=== PATIENT | female | born 1945 | race Caucasian/White ===

== ENCOUNTER 2021-02-15 10:31 | Inpatient (IN) ==
[2021-02-15] MEDS ORDERED: Metoprolol 100 MG TABLET PO STA (10:52)
[2021-02-15] MEDS ORDERED: Ondansetron 4 MG/2 ML VIAL IVP ONE (10:52)
[2021-02-15] MEDS ORDERED: DilTIAZem CD (24hr) 120 MG CAP.ER.24H PO STA (10:53)
[2021-02-15] MEDS ORDERED: Ipratropium/Albuterol Neb 3 ML IH ONE (10:57)
[2021-02-15 12:09] LABS: Basophils % 0.1 %; Hematocrit 39.4 % (35.3-44.9); Hemoglobin 12.7 g/dL (11.5-15.4); Immature Granulocytes % 1.2 % (0-4); Lymphocytes # 0.6 K/mcL (0.6-4.6); Lymphocytes % 4.4 %; Mean Corpuscular HGB Conc 32.2 g/dL (31.6-35.5); Mean Corpuscular Hemoglobin 30.2 pg (28.0-33.3); Mean Corpuscular Volume 93.6 fL (83.0-100.0); Mean Platelet Volume 9.2 fL (9.4-12.4); Monocytes # 0.7 K/mcL (0.0-1.3); Monocytes % 4.8 %; Neutrophils # 13.1 K/mcL (1.6-8.9); Platelet Count 254 K/mcL (140-400); Red Blood Count 4.21 M/mcL (3.82-4.97); Red Cell Distribution Width 14.4 % (11.5-14.5); Segmented Neutrophils % 89.5 %; White Blood Count 14.7 K/mcL (4.3-11.1)
[2021-02-15 12:15] LABS: INR 2.7; Prothrombin Time 29.9 Seconds (9.4-12.1)
[2021-02-15 12:18] LABS: Activated Partial Thrombo Time 39.2 Seconds (26.0-36.0)
[2021-02-15] MEDS ORDERED: cefTRIAXone 1,000 MG in Water for inj. (sterile) 10 ML IVP ONE (12:30)
[2021-02-15] MEDS ORDERED: Azithromycin 250 MG TABLET PO ONE (12:30)
[2021-02-15 12:40] LABS: Influenza A PCR Negative (Negative); Influenza B PCR Negative (Negative); Resp. Syncytial Virus PCR Negative (Negative)
[2021-02-15 12:41] LABS: SARS-CoV-2 by PCR (In House) Negative (Negative)
[2021-02-15 12:46] LABS: Alanine Aminotransferase 30 Units/L (7-52); Albumin 4.1 g/dL (3.5-5.7); Albumin/Globulin Ratio 1.4 (1.1-2.2); Alkaline Phosphatase 120 Units/L (34-104); Aspartate Amino Transferase 30 Units/L (13-39); BUN/Creatinine Ratio 14 (6-26); Bilirubin,Direct 0.3 mg/dL (0.0-0.2); Bilirubin,Indirect 0.6 mg/dL (0.0-1.0); Bilirubin,Total 0.9 mg/dL (0.3-1.0); Blood Urea Nitrogen 10 mg/dL (8-23); Calcium 8.7 mg/dL (8.6-10.3); Carbon Dioxide 26 mEq/L (23-29); Chloride 96 mEq/L (98-107); Glucose 112 mg/dL (70-105); Osmolality,Calculated 272 (280-300); Potassium 3.9 mEq/L (3.5-5.1); Sodium 131 mEq/L (136-145); Total Protein 7.1 g/dL (6.4-8.9); Troponin I 0.04 ng/mL (< 0.04); eGFR For African Americans > 60 (> 60); eGFR For Non-African Americans > 60 (> 60)
[2021-02-15] MEDS ORDERED: methylPREDNISolone 125 MG/2 ML VIAL IVP ONE (12:55)
[2021-02-15] MEDS ORDERED: Naloxone 0.4 MG/ML INJ IVP PRN (13:38)
[2021-02-15] MEDS ORDERED: Ondansetron 4 MG/2 ML VIAL IVP PRN (13:38)
[2021-02-15] MEDS ORDERED: 0.9 % Sodium Chloride 1,000 ML IVC ONE (14:13)
[2021-02-15] MEDS: Ipratropium/Albuterol Neb 3 ML IH SCH ×2 (17:01→21:40)
[2021-02-15] MEDS ORDERED: Warfarin 0.5 MG, Warfarin 3 MG PO ONE (18:00)
[2021-02-15] MEDS ORDERED: Warfarin perPT PO PRN (18:00)
[2021-02-15] MEDS ORDERED: *HR* HYDROcodone/Acet 5/325 mg TABLET PO PRN (18:50)
[2021-02-15] MEDS: Metoprolol 100 MG TABLET PO SCH (19:58)
[2021-02-16] MEDS: Ipratropium/Albuterol Neb 3 ML IH SCH ×4 (04:08→21:15)
[2021-02-16] MEDS ORDERED: MethylPREDNISolone 40 MG/ML VIAL IVP SCH (06:00)
[2021-02-16 07:17] LABS: Basophils % 0.1 %; Hematocrit 36.6 % (35.3-44.9); Hemoglobin 11.8 g/dL (11.5-15.4); Immature Granulocytes % 2.3 % (0-4); Lymphocytes % 5.2 %; Mean Corpuscular HGB Conc 32.2 g/dL (31.6-35.5); Mean Corpuscular Hemoglobin 30.6 pg (28.0-33.3); Mean Corpuscular Volume 94.8 fL (83.0-100.0); Mean Platelet Volume 9.6 fL (9.4-12.4); Monocytes # 0.5 K/mcL (0.0-1.3); Monocytes % 2.9 %; Neutrophils # 16.8 K/mcL (1.6-8.9); Platelet Count 228 K/mcL (140-400); Red Blood Count 3.86 M/mcL (3.82-4.97); Red Cell Distribution Width 14.4 % (11.5-14.5); Segmented Neutrophils % 89.5 %; White Blood Count 18.8 K/mcL (4.3-11.1)
[2021-02-16 07:23] LABS: INR 2.4; Prothrombin Time 26.5 Seconds (9.4-12.1)
[2021-02-16 07:34] LABS: BUN/Creatinine Ratio 20 (6-26); Blood Urea Nitrogen 13 mg/dL (8-23); Calcium 7.9 mg/dL (8.6-10.3); Carbon Dioxide 22 mEq/L (23-29); Chloride 96 mEq/L (98-107); Glucose 155 mg/dL (70-105); Magnesium 1.5 mg/dL (1.6-2.6); Osmolality,Calculated 269 (280-300); Potassium 3.7 mEq/L (3.5-5.1); Sodium 128 mEq/L (136-145); eGFR For African Americans > 60 (> 60); eGFR For Non-African Americans > 60 (> 60)
[2021-02-16] MEDS ORDERED: Azithromycin 500 MG in 0.9 % Sodium Chloride 250 ML IVPB SCH (09:00)
[2021-02-16] MEDS: FLUoxetine 20 MG CAPSULE PO SCH (09:10)
[2021-02-16] MEDS: DilTIAZem CD (24hr) 240 MG CAP.ER.24H PO SCH (09:10)
[2021-02-16] MEDS: Metoprolol 100 MG TABLET PO SCH ×2 (09:11→20:01)
[2021-02-16] MEDS: cefTRIAXone 1,000 MG in Water for inj. (sterile) 10 ML IVP SCH (09:11)
[2021-02-16] MEDS: Aspirin Enteric Coated 81 MG Tablet PO SCH (09:11)
[2021-02-16] MEDS: Cholecalciferol (D-3) 1,000 UNIT (25MCG) TABLET PO SCH (09:11)
[2021-02-16] MEDS ORDERED: *HR* Warfarin 2.5 MG TABLET PO ONE ×2 (18:00→20:00)
[2021-02-17 02:04] LABS: Basophils % 0.1 %; Hemoglobin 11.5 g/dL (11.5-15.4); Lymphocytes # 0.9 K/mcL (0.6-4.6); Mean Corpuscular HGB Conc 31.9 g/dL (31.6-35.5); Mean Platelet Volume 9.7 fL (9.4-12.4); Monocytes % 4.3 %; Neutrophils # 21.1 K/mcL (1.6-8.9); Platelet Count 260 K/mcL (140-400); Red Blood Count 3.83 M/mcL (3.82-4.97); Red Cell Distribution Width 14.1 % (11.5-14.5); Segmented Neutrophils % 89.6 %; White Blood Count 23.5 K/mcL (4.3-11.1)
[2021-02-17 02:23] LABS: BUN/Creatinine Ratio 26 (6-26); Blood Urea Nitrogen 24 mg/dL (8-23); Calcium 8.4 mg/dL (8.6-10.3); Carbon Dioxide 24 mEq/L (23-29); Chloride 92 mEq/L (98-107); Glucose 138 mg/dL (70-105); Osmolality,Calculated 268 (280-300); Potassium 4.1 mEq/L (3.5-5.1); Sodium 126 mEq/L (136-145); eGFR For African Americans > 60 (> 60); eGFR For Non-African Americans > 60 (> 60)
[2021-02-17] MEDS: Ipratropium/Albuterol Neb 3 ML IH SCH ×4 (04:27→19:56)
[2021-02-17] MEDS ORDERED: 0.9 % Sodium Chloride 1,000 ML IVC SCH (07:45)
[2021-02-17] MEDS: Doxycycline 100 MG CAPSULE PO SCH ×2 (09:18→20:13)
[2021-02-17] MEDS: Aspirin Enteric Coated 81 MG Tablet PO SCH (09:19)
[2021-02-17] MEDS: Metoprolol 100 MG TABLET PO SCH ×2 (09:19→20:13)
[2021-02-17] MEDS: FLUoxetine 20 MG CAPSULE PO SCH (09:19)
[2021-02-17] MEDS: DilTIAZem CD (24hr) 240 MG CAP.ER.24H PO SCH (09:19)
[2021-02-17] MEDS: Cholecalciferol (D-3) 1,000 UNIT (25MCG) TABLET PO SCH (09:19)
[2021-02-17] MEDS: cefTRIAXone 1,000 MG in Water for inj. (sterile) 10 ML IVP SCH (09:19)
[2021-02-17] MEDS: MethylPREDNISolone 40 MG/ML VIAL IVP SCH (09:20)
[2021-02-17 11:16] LABS: INR 2.8; Prothrombin Time 31.2 Seconds (9.4-12.1)
[2021-02-17] MEDS ORDERED: *HR* Warfarin 2 MG TABLET PO ONE (18:00)
[2021-02-18] MEDS: Ipratropium/Albuterol Neb 3 ML IH SCH ×3 (03:50→15:38)
[2021-02-18 05:51] LABS: Hematocrit 38.1 % (35.3-44.9); Hemoglobin 12.2 g/dL (11.5-15.4); Mean Corpuscular Hemoglobin 30.5 pg (28.0-33.3); Mean Corpuscular Volume 95.3 fL (83.0-100.0); Mean Platelet Volume 9.4 fL (9.4-12.4); Platelet Count 301 K/mcL (140-400); White Blood Count 18.8 K/mcL (4.3-11.1)
[2021-02-18 06:06] LABS: BUN/Creatinine Ratio 25 (6-26); Blood Urea Nitrogen 18 mg/dL (8-23); Calcium 8.8 mg/dL (8.6-10.3); Carbon Dioxide 26 mEq/L (23-29); Chloride 96 mEq/L (98-107); Glucose 116 mg/dL (70-105); Osmolality,Calculated 275 (280-300); Potassium 4.6 mEq/L (3.5-5.1); Sodium 131 mEq/L (136-145); eGFR For African Americans > 60 (> 60); eGFR For Non-African Americans > 60 (> 60)
[2021-02-18 06:07] LABS: INR 2.8; Prothrombin Time 31.5 Seconds (9.4-12.1)
[2021-02-18 06:56] VITALS: TEMP 98
[2021-02-18] MEDS: FLUoxetine 20 MG CAPSULE PO SCH (08:21)
[2021-02-18] MEDS: cefTRIAXone 1,000 MG in Water for inj. (sterile) 10 ML IVP SCH (08:22)
[2021-02-18] MEDS: Cholecalciferol (D-3) 1,000 UNIT (25MCG) TABLET PO SCH (08:22)
[2021-02-18] MEDS: Doxycycline 100 MG CAPSULE PO SCH (08:22)
[2021-02-18] MEDS: Aspirin Enteric Coated 81 MG Tablet PO SCH (08:22)
[2021-02-18] MEDS: Metoprolol 100 MG TABLET PO SCH (08:22)
[2021-02-18] MEDS: DilTIAZem CD (24hr) 240 MG CAP.ER.24H PO SCH (08:22)
[2021-02-18] MEDS: MethylPREDNISolone 40 MG/ML VIAL IVP SCH (08:23)
[2021-02-18 14:44] VITALS: BP 130/85; PULSE 99
[2021-02-18 15:41] VITALS: O2SAT 95
[2021-02-18] MEDS ORDERED: *HR* Warfarin 2 MG TABLET PO ONE (18:00)
== END 2021-02-18 17:31 | disposition home or self-care (01) | DRG 871 ==
LOC: EMEROOARM 10:31 → 3ANU 10:31 → SUATTDRO 02-16 15:19
PROVIDERS: ADMIT Internal Medicine; ATTEND Internal Medicine

== ENCOUNTER 2021-04-05 13:18 | Inpatient (IN) ==
[2021-04-05 14:27] LABS: Basophils % 0.1 %; Hematocrit 33.2 % (35.3-44.9); Hemoglobin 11.2 g/dL (11.5-15.4); Immature Granulocytes % 0.9 % (0-4); Lymphocytes # 0.7 K/mcL (0.6-4.6); Lymphocytes % 4.6 %; Mean Corpuscular HGB Conc 33.7 g/dL (31.6-35.5); Mean Corpuscular Hemoglobin 30.6 pg (28.0-33.3); Mean Corpuscular Volume 90.7 fL (83.0-100.0); Mean Platelet Volume 9.3 fL (9.4-12.4); Monocytes # 1.1 K/mcL (0.0-1.3); Monocytes % 6.9 %; Platelet Count 325 K/mcL (140-400); Red Blood Count 3.66 M/mcL (3.82-4.97); Segmented Neutrophils % 87.5 %
[2021-04-05 14:53] LABS: BUN/Creatinine Ratio 14 (6-26); Blood Urea Nitrogen 8 mg/dL (8-23); Calcium 9.2 mg/dL (8.6-10.3); Carbon Dioxide 26 mEq/L (23-29); Chloride 79 mEq/L (98-107); Glucose 150 mg/dL (70-105); Osmolality,Calculated 241 (280-300); Potassium 3.5 mEq/L (3.5-5.1); Sodium 115 mEq/L (136-145); Troponin I < 0.03 ng/mL (< 0.04); eGFR For African Americans > 60 (> 60); eGFR For Non-African Americans > 60 (> 60)
[2021-04-05 15:46] LABS: Alanine Aminotransferase 24 Units/L (7-52); Albumin 4.3 g/dL (3.5-5.7); Albumin/Globulin Ratio 1.4 (1.1-2.2); Alkaline Phosphatase 119 Units/L (34-104); Aspartate Amino Transferase 27 Units/L (13-39); BUN/Creatinine Ratio 15 (6-26); Bilirubin,Direct 0.4 mg/dL (0.0-0.2); Bilirubin,Indirect 0.8 mg/dL (0.0-1.0); Bilirubin,Total 1.2 mg/dL (0.3-1.0); Blood Urea Nitrogen 8 mg/dL (8-23); Calcium 9.3 mg/dL (8.6-10.3); Carbon Dioxide 25 mEq/L (23-29); Chloride 79 mEq/L (98-107); Glucose 157 mg/dL (70-105); Osmolality,Calculated 242 (280-300); Potassium 3.3 mEq/L (3.5-5.1); Sodium 115 mEq/L (136-145); Total Protein 7.3 g/dL (6.4-8.9); eGFR For African Americans > 60 (> 60); eGFR For Non-African Americans > 60 (> 60)
[2021-04-05] MEDS ORDERED: DilTIAZem 50 MG/50 ML IV.SOLN IVC SCH (18:00)
[2021-04-05] MEDS: DilTIAZem 50 MG/50 ML IV.SOLN IVC SCH ×2 (18:37→22:30)
[2021-04-05 19:27] LABS: Influenza A PCR Negative (Negative); Influenza B PCR Negative (Negative); Resp. Syncytial Virus PCR Negative (Negative); SARS-CoV-2 by PCR (In House) Negative (Negative)
[2021-04-05] MEDS ORDERED: Isovue-370 500 ML BOTTLE IVP ONE (19:32)
[2021-04-05 20:10] LABS: Bilirubin,Urine Negative (Negative); Blood,Urine Negative (Negative); Clarity,Urine Clear (Clear); Color,Urine Light-Yellow (Yellow); Glucose,Urine (UA) Normal (Normal); Ketones,Urine 20 mg/dL (Negative); Leukocyte Esterase,Urine Negative (Negative); Nitrite,Urine Negative (Negative); PH,Urine 6.5 pH Units (5.0-8.0); Protein,Urine 70 mg/dL (Neg-Trace); RBC,Urine 0-3 per hpf (0-3); Specific Gravity,Urine 1.014 (1.010-1.025); Squamous Epithelial Cell,Urine Few per hpf (None-Few); Urobilinogen,Urine Normal (Normal); WBC,Urine 0-3 per hpf (0-3)
[2021-04-05] MEDS ORDERED: Acetaminophen 325 MG TABLET PO PRN (20:15)
[2021-04-05] MEDS ORDERED: Melatonin 3 MG TABLET PO PRN (20:15)
[2021-04-05] MEDS ORDERED: Naloxone 0.4 MG/ML INJ IVP PRN (20:15)
[2021-04-05] MEDS ORDERED: *HR* OxyCODONE Immed Rel 5 MG TABLET PO PRN (20:15)
[2021-04-05] MEDS ORDERED: Ondansetron 4 MG/2 ML VIAL IVP PRN (20:15)
[2021-04-05] MEDS ORDERED: *HR* HYDROcodone/Acet 5/325 mg TABLET PO PRN (20:15)
[2021-04-05] MEDS ORDERED: *HR* Promethazine 25 MG/ML VIAL IM PRN (20:15)
[2021-04-05 20:27] LABS: BUN/Creatinine Ratio 13 (6-26); Blood Urea Nitrogen 6 mg/dL (8-23); Calcium 8.7 mg/dL (8.6-10.3); Carbon Dioxide 24 mEq/L (23-29); Chloride 81 mEq/L (98-107); Glucose 135 mg/dL (70-105); Osmolality,Calculated 240 (280-300); Potassium 3.3 mEq/L (3.5-5.1); Sodium 115 mEq/L (136-145); eGFR For African Americans > 60 (> 60); eGFR For Non-African Americans > 60 (> 60)
[2021-04-05] MEDS ORDERED: Ipratropium/Albuterol Neb 3 ML IH PRN (21:11)
[2021-04-05 21:54] LABS: ABG Base Excess 2 mEq/L (-2 to 3); ABG HCO3 26 mEq/L (21-27); ABG Oxygen Saturation 96 % (95-98); ABG PCO2 40 mmHg (35-45); ABG PH 7.42 pH Units (7.32-7.45); ABG PO2 77 mmHg (85-104); ABG TCO2 28 mEq/L (20-26)
[2021-04-05] MEDS: Azithromycin 500 MG in 0.9 % Sodium Chloride 250 ML IVPB SCH (22:31)
[2021-04-05] MEDS: Cefepime HCl 2,000 MG in 0.9 % Sodium Chloride Mini Bag 100 ML IVPB SCH (22:49)
[2021-04-05] MEDS: 0.9 % Sodium Chloride 1,000 ML IVC SCH (23:28)
[2021-04-05] MEDS: MethylPREDNISolone 40 MG/ML VIAL IVP SCH (23:28)
[2021-04-06] MEDS ORDERED: *HR* LORazepam 2 MG/ML VIAL IVP PRN ×3 (00:22)
[2021-04-06 01:17] LABS: Prothrombin Time 22.3 Seconds (9.4-12.1)
[2021-04-06] MEDS ORDERED: *HR* Metoprolol 5 MG/5 ML VIAL IVP ONE (05:04)
[2021-04-06] MEDS: Cefepime HCl 2,000 MG in 0.9 % Sodium Chloride Mini Bag 100 ML IVPB SCH ×3 (05:24→21:56)
[2021-04-06 05:31] LABS: Basophils % 0.1 %; Hematocrit 30.6 % (35.3-44.9); Hemoglobin 10.5 g/dL (11.5-15.4); Immature Granulocytes % 0.8 % (0-4); Lymphocytes # 0.8 K/mcL (0.6-4.6); Lymphocytes % 4.6 %; Mean Corpuscular HGB Conc 34.3 g/dL (31.6-35.5); Mean Corpuscular Hemoglobin 31.3 pg (28.0-33.3); Mean Corpuscular Volume 91.1 fL (83.0-100.0); Mean Platelet Volume 9.2 fL (9.4-12.4); Monocytes # 0.6 K/mcL (0.0-1.3); Monocytes % 3.4 %; Neutrophils # 15.8 K/mcL (1.6-8.9); Platelet Count 274 K/mcL (140-400); Red Blood Count 3.36 M/mcL (3.82-4.97); Segmented Neutrophils % 91.1 %; White Blood Count 17.3 K/mcL (4.3-11.1)
[2021-04-06 05:38] LABS: INR 1.9; Prothrombin Time 21.4 Seconds (9.4-12.1)
[2021-04-06 05:55] LABS: Magnesium 1.7 mg/dL (1.6-2.6)
[2021-04-06] MEDS: 0.9 % Sodium Chloride 1,000 ML IVC SCH ×2 (07:53→21:44)
[2021-04-06] MEDS: MethylPREDNISolone 40 MG/ML VIAL IVP SCH ×2 (07:56→15:43)
[2021-04-06] MEDS: Folic Acid 1 MG in 0.9 % Sodium Chloride 50 ML IVPB SCH (11:54)
[2021-04-06 12:31] LABS: Albumin 3.6 g/dL (3.5-5.7); BUN/Creatinine Ratio 16 (6-26); Blood Urea Nitrogen 8 mg/dL (8-23); Calcium 8.6 mg/dL (8.6-10.3); Carbon Dioxide 25 mEq/L (23-29); Chloride 85 mEq/L (98-107); Glucose 130 mg/dL (70-105); Magnesium 1.8 mg/dL (1.6-2.6); Osmolality,Calculated 252 (280-300); Phosphorous 3.2 mg/dL (2.7-4.5); Potassium 3.6 mEq/L (3.5-5.1); Sodium 121 mEq/L (136-145); eGFR For African Americans > 60 (> 60); eGFR For Non-African Americans > 60 (> 60)
[2021-04-06] MEDS: Thiamine (B-1) 200 MG in 0.9 % Sodium Chloride 50 ML IVPB SCH (15:42)
[2021-04-06] MEDS ORDERED: Warfarin perPT PO PRN (18:00)
[2021-04-06] MEDS ORDERED: *HR* Warfarin 5 MG TABLET PO ONE (18:00)
[2021-04-06] MEDS: Azithromycin 500 MG in 0.9 % Sodium Chloride 250 ML IVPB SCH (22:02)
[2021-04-07] MEDS: MethylPREDNISolone 40 MG/ML VIAL IVP SCH ×3 (00:36→16:44)
[2021-04-07 01:42] LABS: INR 2.1; Prothrombin Time 23.7 Seconds (9.4-12.1)
[2021-04-07] MEDS: Cefepime HCl 2,000 MG in 0.9 % Sodium Chloride Mini Bag 100 ML IVPB SCH ×3 (06:20→21:32)
[2021-04-07] MEDS: Thiamine (B-1) 200 MG in 0.9 % Sodium Chloride 50 ML IVPB SCH (07:39)
[2021-04-07] MEDS: Folic Acid 1 MG in 0.9 % Sodium Chloride 50 ML IVPB SCH (07:39)
[2021-04-07] MEDS: 0.9 % Sodium Chloride 1,000 ML IVC SCH ×2 (07:39→18:33)
[2021-04-07] MEDS: Aspirin Enteric Coated 81 MG Tablet PO SCH (14:11)
[2021-04-07] MEDS: DilTIAZem CD (24hr) 240 MG CAP.ER.24H PO SCH (15:00)
[2021-04-07] MEDS: Metoprolol 100 MG TABLET PO SCH ×2 (15:00→21:33)
[2021-04-07] MEDS ORDERED: *HR* Warfarin 3 MG TABLET PO ONE (18:00)
[2021-04-07] MEDS: Azithromycin 500 MG in 0.9 % Sodium Chloride 250 ML IVPB SCH (21:32)
[2021-04-08] MEDS: MethylPREDNISolone 40 MG/ML VIAL IVP SCH ×3 (01:20→16:40)
[2021-04-08 02:51] LABS: Basophils % 0.1 %; Hemoglobin 10.2 g/dL (11.5-15.4); Lymphocytes # 0.6 K/mcL (0.6-4.6); Lymphocytes % 4.5 %; Mean Corpuscular HGB Conc 32.9 g/dL (31.6-35.5); Mean Corpuscular Hemoglobin 30.3 pg (28.0-33.3); Monocytes # 0.4 K/mcL (0.0-1.3); Monocytes % 2.9 %; Neutrophils # 13.1 K/mcL (1.6-8.9); Platelet Count 300 K/mcL (140-400); Red Blood Count 3.37 M/mcL (3.82-4.97); Red Cell Distribution Width 17.2 % (11.5-14.5); Segmented Neutrophils % 91.5 %; White Blood Count 14.3 K/mcL (4.3-11.1)
[2021-04-08] MEDS: 0.9 % Sodium Chloride 1,000 ML IVC SCH (02:53)
[2021-04-08 03:08] LABS: BUN/Creatinine Ratio 26 (6-26); Blood Urea Nitrogen 16 mg/dL (8-23); Calcium 8.3 mg/dL (8.6-10.3); Carbon Dioxide 22 mEq/L (23-29); Chloride 96 mEq/L (98-107); Glucose 142 mg/dL (70-105); Osmolality,Calculated 264 (280-300); Potassium 4.1 mEq/L (3.5-5.1); Sodium 125 mEq/L (136-145); eGFR For African Americans > 60 (> 60); eGFR For Non-African Americans > 60 (> 60)
[2021-04-08 03:09] LABS: INR 2.3; Prothrombin Time 25.4 Seconds (9.4-12.1)
[2021-04-08] MEDS: Cefepime HCl 2,000 MG in 0.9 % Sodium Chloride Mini Bag 100 ML IVPB SCH ×3 (06:07→22:25)
[2021-04-08] MEDS: Metoprolol 100 MG TABLET PO SCH ×2 (09:31→20:12)
[2021-04-08] MEDS: Aspirin Enteric Coated 81 MG Tablet PO SCH (09:31)
[2021-04-08] MEDS: FLUoxetine 20 MG CAPSULE PO SCH (09:31)
[2021-04-08] MEDS: DilTIAZem CD (24hr) 240 MG CAP.ER.24H PO SCH (09:32)
[2021-04-08] MEDS: Thiamine (B-1) 200 MG in 0.9 % Sodium Chloride 50 ML IVPB SCH (10:32)
[2021-04-08] MEDS: Folic Acid 1 MG in 0.9 % Sodium Chloride 50 ML IVPB SCH (10:32)
[2021-04-08] MEDS ORDERED: *HR* Warfarin 2.5 MG TABLET PO ONE (18:00)
[2021-04-08] MEDS: Azithromycin 500 MG in 0.9 % Sodium Chloride 250 ML IVPB SCH (22:25)
[2021-04-09] MEDS: MethylPREDNISolone 40 MG/ML VIAL IVP SCH ×3 (00:04→15:59)
[2021-04-09 05:30] LABS: Basophils % 0.1 %; Hematocrit 31.7 % (35.3-44.9); Hemoglobin 10.1 g/dL (11.5-15.4); Immature Granulocytes % 1.3 % (0-4); Lymphocytes # 0.6 K/mcL (0.6-4.6); Lymphocytes % 5.8 %; Mean Corpuscular HGB Conc 31.9 g/dL (31.6-35.5); Mean Corpuscular Hemoglobin 30.2 pg (28.0-33.3); Mean Corpuscular Volume 94.9 fL (83.0-100.0); Mean Platelet Volume 8.7 fL (9.4-12.4); Monocytes # 0.3 K/mcL (0.0-1.3); Monocytes % 2.6 %; Neutrophils # 9.4 K/mcL (1.6-8.9); Platelet Count 287 K/mcL (140-400); Red Blood Count 3.34 M/mcL (3.82-4.97); Red Cell Distribution Width 17.2 % (11.5-14.5); Segmented Neutrophils % 90.2 %; White Blood Count 10.4 K/mcL (4.3-11.1)
[2021-04-09 05:43] LABS: INR 2.2; Prothrombin Time 24.6 Seconds (9.4-12.1)
[2021-04-09 05:44] LABS: BUN/Creatinine Ratio 28 (6-26); Blood Urea Nitrogen 16 mg/dL (8-23); Carbon Dioxide 23 mEq/L (23-29); Chloride 99 mEq/L (98-107); Glucose 160 mg/dL (70-105); Osmolality,Calculated 271 (280-300); Potassium 4.2 mEq/L (3.5-5.1); Sodium 128 mEq/L (136-145); eGFR For African Americans > 60 (> 60); eGFR For Non-African Americans > 60 (> 60)
[2021-04-09] MEDS: Cefepime HCl 2,000 MG in 0.9 % Sodium Chloride Mini Bag 100 ML IVPB SCH ×2 (06:30→15:00)
[2021-04-09] MEDS ORDERED: Tiotropium 10 INH DOSE IH SCH (09:00)
[2021-04-09] MEDS: DilTIAZem CD (24hr) 240 MG CAP.ER.24H PO SCH (09:14)
[2021-04-09] MEDS: FLUoxetine 20 MG CAPSULE PO SCH (09:14)
[2021-04-09] MEDS: Aspirin Enteric Coated 81 MG Tablet PO SCH (09:14)
[2021-04-09] MEDS: Metoprolol 100 MG TABLET PO SCH (09:18)
[2021-04-09 13:08] VITALS: BP 139/91; PULSE 71; TEMP 95.3; O2SAT 95
[2021-04-09] MEDS ORDERED: *HR* Warfarin 2.5 MG TABLET PO ONE (18:00)
[2021-04-11 02:10] LABS: Alpha 2 Globulin (PEP) 1.01 g/dL (0.48-1.05); Beta Globulin (PEP) 0.73 g/dL (0.48-1.10)
[2021-04-11 09:33] LABS: Immunoglobulin A 103 mg/dL (68-408); Immunoglobulin G 785 mg/dL (768-1632); Immunoglobulin M 194 mg/dL (35-263)
[2021-04-11 09:49] LABS: IFE Reflexed IFE Done
== END 2021-04-09 15:59 | disposition home health service (06) | DRG 193 ==
LOC: EMEROOARM 13:18 → 2NNU 13:18 → SUATTDRO 20:45 → 2NNU 22:05
PROVIDERS: ADMIT Internal Medicine; ATTEND Internal Medicine

== ENCOUNTER 2021-06-01 14:27 | Observation (INO) ==
[2021-06-01 15:59] LABS: Basophils % 0.3 %; Eosinophils % 0.3 %; Hematocrit 30.8 % (35.3-44.9); Hemoglobin 9.8 g/dL (11.5-15.4); Immature Granulocytes % 0.4 % (0-4); Lymphocytes # 1.3 K/mcL (0.6-4.6); Lymphocytes % 11.5 %; Mean Corpuscular HGB Conc 31.8 g/dL (31.6-35.5); Mean Corpuscular Hemoglobin 28.1 pg (28.0-33.3); Mean Corpuscular Volume 88.3 fL (83.0-100.0); Mean Platelet Volume 9.2 fL (9.4-12.4); Monocytes # 0.7 K/mcL (0.0-1.3); Monocytes % 6.1 %; Neutrophils # 9.4 K/mcL (1.6-8.9); Platelet Count 288 K/mcL (140-400); Red Blood Count 3.49 M/mcL (3.82-4.97); Red Cell Distribution Width 16.6 % (11.5-14.5); Segmented Neutrophils % 81.4 %; White Blood Count 11.6 K/mcL (4.3-11.1)
[2021-06-01 16:22] LABS: BUN/Creatinine Ratio 14 (6-26); Blood Urea Nitrogen 8 mg/dL (8-23); Calcium 9.1 mg/dL (8.6-10.3); Carbon Dioxide 26 mEq/L (23-29); Chloride 91 mEq/L (98-107); Glucose 107 mg/dL (70-105); Osmolality,Calculated 263 (280-300); Potassium 3.8 mEq/L (3.5-5.1); Sodium 127 mEq/L (136-145); Troponin I < 0.03 ng/mL (< 0.04); eGFR For African Americans > 60 (> 60); eGFR For Non-African Americans > 60 (> 60)
[2021-06-01] MEDS ORDERED: Azithromycin 500 MG in 0.9 % Sodium Chloride 250 ML IVPB ONE (16:46)
[2021-06-01] MEDS ORDERED: cefTRIAXone 1,000 MG in 0.9 % Sodium Chloride Mini Bag 100 ML IVPB ONE (16:57)
[2021-06-01] MEDS ORDERED: Naloxone 0.4 MG/ML INJ IVP PRN (17:26)
[2021-06-01] MEDS ORDERED: *HR* LORazepam 2 MG/ML VIAL IVP PRN ×3 (17:48)
[2021-06-01] MEDS ORDERED: Ipratropium/Albuterol Neb 3 ML IH PRN (18:29)
[2021-06-01] MEDS: Furosemide 40 MG/4 ML VIAL IVP SCH (18:52)
[2021-06-01 18:56] LABS: INR 3.8; Prothrombin Time 41.6 Seconds (9.4-12.1)
[2021-06-01] MEDS ORDERED: traZODone 50 MG TABLET PO PRN (20:14)
[2021-06-01] MEDS: DilTIAZem CD (24hr) 240 MG CAP.ER.24H PO SCH (21:15)
[2021-06-01] MEDS: Metoprolol 100 MG TABLET PO SCH (21:16)
[2021-06-02 02:19] LABS: INR 3.5; Prothrombin Time 38.8 Seconds (9.4-12.1)
[2021-06-02 02:21] LABS: Basophils # 0.1 K/mcL (0.0-0.2); Basophils % 0.4 %; Eosinophils % 0.2 %; Hematocrit 31.8 % (35.3-44.9); Hemoglobin 10.1 g/dL (11.5-15.4); Immature Granulocytes % 0.5 % (0-4); Lymphocytes # 1.4 K/mcL (0.6-4.6); Lymphocytes % 10.6 %; Mean Corpuscular HGB Conc 31.8 g/dL (31.6-35.5); Mean Corpuscular Hemoglobin 29.4 pg (28.0-33.3); Mean Corpuscular Volume 92.4 fL (83.0-100.0); Mean Platelet Volume 9.2 fL (9.4-12.4); Monocytes # 0.7 K/mcL (0.0-1.3); Monocytes % 5.4 %; Platelet Count 285 K/mcL (140-400); Red Blood Count 3.44 M/mcL (3.82-4.97); Red Cell Distribution Width 16.8 % (11.5-14.5); Segmented Neutrophils % 82.9 %; White Blood Count 13.3 K/mcL (4.3-11.1)
[2021-06-02 02:29] LABS: BUN/Creatinine Ratio 11 (6-26); Blood Urea Nitrogen 7 mg/dL (8-23); Calcium 8.6 mg/dL (8.6-10.3); Carbon Dioxide 23 mEq/L (23-29); Chloride 92 mEq/L (98-107); Glucose 110 mg/dL (70-105); Osmolality,Calculated 263 (280-300); Potassium 3.8 mEq/L (3.5-5.1); Sodium 127 mEq/L (136-145); eGFR For African Americans > 60 (> 60); eGFR For Non-African Americans > 60 (> 60)
[2021-06-02] MEDS: Aspirin Enteric Coated 81 MG Tablet PO SCH (09:16)
[2021-06-02] MEDS: FLUoxetine 20 MG CAPSULE PO SCH (09:16)
[2021-06-02] MEDS: Multivit/Ca/Min/Fe/FA 1 TAB TABLET PO SCH (09:16)
[2021-06-02] MEDS: Furosemide 40 MG/4 ML VIAL IVP SCH (09:17)
[2021-06-02] MEDS: levoFLOXacin 750 MG/150 ML 750 MG/150 ML BAG IVPB SCH (09:17)
[2021-06-02] MEDS: Metoprolol 100 MG TABLET PO SCH ×2 (09:17→20:54)
[2021-06-02] MEDS: DilTIAZem CD (24hr) 240 MG CAP.ER.24H PO SCH (09:17)
[2021-06-02] MEDS ORDERED: Warfarin perPT PO PRN (18:00)
[2021-06-02] MEDS ORDERED: Azithromycin 500 MG in 0.9 % Sodium Chloride 250 ML IVPB SCH (18:00)
[2021-06-02] MEDS ORDERED: cefTRIAXone 2,000 MG in 0.9 % Sodium Chloride 20 ML IVP SCH (18:00)
[2021-06-03 01:51] LABS: Basophils % 0.1 %; Eosinophils % 0.1 %; Hematocrit 29.3 % (35.3-44.9); Hemoglobin 9.6 g/dL (11.5-15.4); Immature Granulocytes % 0.6 % (0-4); Lymphocytes # 1.1 K/mcL (0.6-4.6); Lymphocytes % 7.9 %; Mean Corpuscular HGB Conc 32.8 g/dL (31.6-35.5); Mean Corpuscular Hemoglobin 29.5 pg (28.0-33.3); Mean Corpuscular Volume 90.2 fL (83.0-100.0); Monocytes # 0.9 K/mcL (0.0-1.3); Monocytes % 6.5 %; Platelet Count 274 K/mcL (140-400); Red Blood Count 3.25 M/mcL (3.82-4.97); Red Cell Distribution Width 16.3 % (11.5-14.5); Segmented Neutrophils % 84.8 %; White Blood Count 14.1 K/mcL (4.3-11.1)
[2021-06-03 02:01] LABS: INR 2.5; Prothrombin Time 27.2 Seconds (9.4-12.1)
[2021-06-03 02:10] LABS: BUN/Creatinine Ratio 17 (6-26); Blood Urea Nitrogen 9 mg/dL (8-23); Calcium 8.5 mg/dL (8.6-10.3); Carbon Dioxide 24 mEq/L (23-29); Chloride 90 mEq/L (98-107); Glucose 113 mg/dL (70-105); Osmolality,Calculated 261 (280-300); Potassium 3.4 mEq/L (3.5-5.1); Sodium 126 mEq/L (136-145); eGFR For African Americans > 60 (> 60); eGFR For Non-African Americans > 60 (> 60)
[2021-06-03 07:14] VITALS: O2SAT 96
[2021-06-03] MEDS: Metoprolol 100 MG TABLET PO SCH (08:17)
[2021-06-03] MEDS: Furosemide 40 MG/4 ML VIAL IVP SCH (08:17)
[2021-06-03] MEDS: Aspirin Enteric Coated 81 MG Tablet PO SCH (08:17)
[2021-06-03] MEDS: DilTIAZem CD (24hr) 240 MG CAP.ER.24H PO SCH (08:17)
[2021-06-03] MEDS: levoFLOXacin 750 MG/150 ML 750 MG/150 ML BAG IVPB SCH (08:17)
[2021-06-03] MEDS: FLUoxetine 20 MG CAPSULE PO SCH (08:17)
[2021-06-03] MEDS: Multivit/Ca/Min/Fe/FA 1 TAB TABLET PO SCH (08:17)
[2021-06-03] MEDS ORDERED: Tiotropium 10 INH DOSE IH SCH (10:00)
[2021-06-03 10:29] VITALS: BP 120/77; PULSE 104; TEMP 97.5
[2021-06-03] MEDS ORDERED: *HR* Warfarin 2.5 MG TABLET PO ONE (18:00)
== END 2021-06-03 14:58 | disposition home or self-care (01) ==
LOC: EMEROOARM 14:27 → 3ANU 14:27
PROVIDERS: ADMIT Internal Medicine; ATTEND Internal Medicine

== ENCOUNTER 2021-06-08 10:53 | Inpatient (IN) ==
[2021-06-08] MEDS ORDERED: Morphine Sulfate 2 MG/ML SYRINGE IVP ONE (14:36)
[2021-06-08] MEDS ORDERED: *HR* Metoprolol 5 MG/5 ML VIAL IVP ONE ×2 (14:38→15:12)
[2021-06-08] MEDS ORDERED: methylPREDNISolone 125 MG/2 ML VIAL IVP ONE (14:43)
[2021-06-08 15:24] LABS: VBG HCO3 22 mEq/L (21-27); VBG PCO2 34 mmHg (41-51); VBG PH 7.41 pH Units (7.32-7.42); VBG PO2 55 mmHg (25-50)
[2021-06-08 15:46] LABS: Activated Partial Thrombo Time 52.8 Seconds (26.0-36.0)
[2021-06-08 15:49] LABS: Alanine Aminotransferase 39 Units/L (7-52); Albumin 3.6 g/dL (3.5-5.7); Albumin/Globulin Ratio 1.1 (1.1-2.2); Alkaline Phosphatase 156 Units/L (34-104); Aspartate Amino Transferase 32 Units/L (13-39); BUN/Creatinine Ratio 22 (6-26); Bilirubin,Direct 0.4 mg/dL (0.0-0.2); Bilirubin,Indirect 0.4 mg/dL (0.0-1.0); Bilirubin,Total 0.8 mg/dL (0.3-1.0); Blood Urea Nitrogen 13 mg/dL (8-23); Calcium 9.2 mg/dL (8.6-10.3); Carbon Dioxide 23 mEq/L (23-29); Chloride 81 mEq/L (98-107); Globulin 3.2 g/dL (2.4-3.5); Glucose 92 mg/dL (70-105); Magnesium 1.6 mg/dL (1.6-2.6); Osmolality,Calculated 244 (280-300); Potassium 4.3 mEq/L (3.5-5.1); Sodium 117 mEq/L (136-145); Total Protein 6.8 g/dL (6.4-8.9); Troponin I 0.03 ng/mL (< 0.04); eGFR For African Americans > 60 (> 60); eGFR For Non-African Americans > 60 (> 60)
[2021-06-08 15:57] LABS: INR 4.8; Prothrombin Time 53.1 Seconds (9.4-12.1)
[2021-06-08 16:35] LABS: Hematocrit 33.3 % (35.3-44.9); Hemoglobin 11.1 g/dL (11.5-15.4); Mean Corpuscular HGB Conc 33.3 g/dL (31.6-35.5); Mean Corpuscular Hemoglobin 28.3 pg (28.0-33.3); Mean Corpuscular Volume 84.9 fL (83.0-100.0); Mean Platelet Volume 8.9 fL (9.4-12.4); Platelet Count 459 K/mcL (140-400); Red Blood Count 3.92 M/mcL (3.82-4.97); Red Cell Distribution Width 16.3 % (11.5-14.5)
[2021-06-08 17:09] LABS: Lymphocytes # 0.5 K/mcL (0.6-4.6); Monocytes # 1.4 K/mcL (0.0-1.3); Neutrophils # 21.2 K/mcL (1.6-8.9); Platelet Estimate Increased (Normal)
[2021-06-08 17:13] LABS: Influenza A PCR Negative (Negative); Influenza B PCR Negative (Negative); Resp. Syncytial Virus PCR Negative (Negative)
[2021-06-08 17:15] LABS: SARS-CoV-2 by PCR (In House) Negative (Negative)
[2021-06-08] MEDS ORDERED: cefTRIAXone 1,000 MG in 0.9 % Sodium Chloride Mini Bag 100 ML IVPB ONE (17:19)
[2021-06-08] MEDS ORDERED: Azithromycin 500 MG in 0.9 % Sodium Chloride 250 ML IVPB ONE (17:20)
[2021-06-08] MEDS ORDERED: *HR* HYDROcodone/Acet 5/325 mg TABLET PO PRN (17:56)
[2021-06-08] MEDS ORDERED: Melatonin 3 MG TABLET PO PRN (17:56)
[2021-06-08] MEDS ORDERED: Naloxone 0.4 MG/ML INJ IVP PRN (17:56)
[2021-06-08] MEDS ORDERED: Warfarin perPT PO PRN (18:00)
[2021-06-08] MEDS: DilTIAZem 50 MG/50 ML IV.SOLN IVC SCH ×2 (18:16→22:31)
[2021-06-08] MEDS ORDERED: *HR* LORazepam 2 MG/ML VIAL IVP PRN ×3 (18:34)
[2021-06-08] MEDS ORDERED: *HR* LORazepam 2 MG/ML VIAL IVP ONE (18:42)
[2021-06-08 19:52] LABS: C-Reactive Protein 203 mg/L (Less than 10)
[2021-06-08] MEDS ORDERED: *HR* Metoprolol 5 MG/5 ML VIAL IVP PRN (20:32)
[2021-06-08] MEDS: Metoprolol 100 MG TABLET PO SCH (20:32)
[2021-06-08 21:07] LABS: Bilirubin,Urine Negative (Negative); Blood,Urine Large (Negative); Clarity,Urine Turbid (Clear); Color,Urine Light-Orange (Yellow); Glucose,Urine (UA) Normal (Normal); Ketones,Urine 40 mg/dL (Negative); Leukocyte Esterase,Urine Small (Negative); Mucus,Urine Few per lpf (None-Few); Nitrite,Urine Negative (Negative); PH,Urine 6.5 pH Units (5.0-8.0); Protein,Urine 100 mg/dL (Neg-Trace); RBC,Urine TNTC per hpf (0-3); Specific Gravity,Urine > 1.030 (1.010-1.025); WBC,Urine 30-50 per hpf (0-3)
[2021-06-08] MEDS: Vancomycin 1,500 MG/265 ML IV.SOLN IVPB SCH (21:12)
[2021-06-08] MEDS: Thiamine (B-1) 100 MG TABLET PO SCH (21:15)
[2021-06-08] MEDS: Folic Acid 1 MG TABLET PO SCH (21:15)
[2021-06-08 21:58] LABS: Creatinine,Urine 135 mg/dL; Sodium, Urine < 10.0 mEq/L
[2021-06-08] MEDS ORDERED: Ipratropium/Albuterol Neb 3 ML IH SCH (22:00)
[2021-06-08] MEDS: Levalbuterol Neb 1.25 MG/3 ML IH SCH (22:41)
[2021-06-08] MEDS: Budesonide/Formoterol 160/4.5 1 PUFF INH IH SCH (22:41)
[2021-06-09 03:08] LABS: Basophils % 0.1 %; Hematocrit 30.3 % (35.3-44.9); Lymphocytes % 3.2 %; Mean Corpuscular Hemoglobin 27.9 pg (28.0-33.3); Mean Corpuscular Volume 84.4 fL (83.0-100.0); Mean Platelet Volume 8.9 fL (9.4-12.4); Monocytes # 0.3 K/mcL (0.0-1.3); Monocytes % 1.3 %; Platelet Count 419 K/mcL (140-400); Red Blood Count 3.59 M/mcL (3.82-4.97); Red Cell Distribution Width 15.9 % (11.5-14.5); Segmented Neutrophils % 94.4 %; White Blood Count 23.5 K/mcL (4.3-11.1)
[2021-06-09 03:27] LABS: Lymphocytes # 0.8 K/mcL (0.6-4.6); Neutrophils # 22.2 K/mcL (1.6-8.9)
[2021-06-09 03:33] LABS: INR 5.9; Prothrombin Time 64.7 Seconds (9.4-12.1)
[2021-06-09 03:34] LABS: Alanine Aminotransferase 31 Units/L (7-52); Albumin 3.2 g/dL (3.5-5.7); Albumin/Globulin Ratio 1.1 (1.1-2.2); Alkaline Phosphatase 134 Units/L (34-104); Aspartate Amino Transferase 25 Units/L (13-39); BUN/Creatinine Ratio 21 (6-26); Bilirubin,Total 0.6 mg/dL (0.3-1.0); Blood Urea Nitrogen 11 mg/dL (8-23); Calcium 8.7 mg/dL (8.6-10.3); Carbon Dioxide 24 mEq/L (23-29); Chloride 84 mEq/L (98-107); Globulin 2.8 g/dL (2.4-3.5); Glucose 108 mg/dL (70-105); Osmolality,Calculated 246 (280-300); Potassium 4.8 mEq/L (3.5-5.1); Sodium 118 mEq/L (136-145); eGFR For African Americans > 60 (> 60); eGFR For Non-African Americans > 60 (> 60)
[2021-06-09] MEDS: Levalbuterol Neb 1.25 MG/3 ML IH SCH ×4 (03:50→20:05)
[2021-06-09] MEDS: DilTIAZem 50 MG/50 ML IV.SOLN IVC SCH ×3 (03:52→14:15)
[2021-06-09] MEDS ORDERED: Furosemide 20 MG TABLET PO SCH (09:00)
[2021-06-09] MEDS ORDERED: cefTRIAXone 1,000 MG in 0.9 % Sodium Chloride 10 ML IVP SCH (09:00)
[2021-06-09] MEDS ORDERED: Azithromycin 250 MG TABLET PO SCH (09:00)
[2021-06-09] MEDS: Thiamine (B-1) 100 MG TABLET PO SCH (09:12)
[2021-06-09] MEDS: Aspirin Enteric Coated 81 MG Tablet PO SCH (09:12)
[2021-06-09] MEDS: FLUoxetine 20 MG CAPSULE PO SCH (09:12)
[2021-06-09] MEDS: Furosemide 40 MG/4 ML VIAL IVP SCH ×2 (09:13→20:39)
[2021-06-09] MEDS: Cholecalciferol (D-3) 1,000 UNIT (25MCG) TABLET PO SCH (09:13)
[2021-06-09] MEDS: predniSONE 20 MG TABLET PO SCH (09:13)
[2021-06-09] MEDS: Metoprolol 100 MG TABLET PO SCH ×2 (09:13→20:42)
[2021-06-09] MEDS: Folic Acid 1 MG TABLET PO SCH (09:13)
[2021-06-09] MEDS: Vancomycin 1,500 MG/265 ML IV.SOLN IVPB SCH ×2 (09:28→20:43)
[2021-06-09] MEDS: Budesonide/Formoterol 160/4.5 1 PUFF INH IH SCH ×2 (10:18→20:05)
[2021-06-09] MEDS: Piperacillin/Tazobactam 3.375 GM in 0.9 % Sodium Chloride Mini Bag 100 ML IVPB SCH ×2 (10:54→17:23)
[2021-06-09] MEDS ORDERED: *HR* Phytonadione 5 MG TABLET PO ONE (11:17)
[2021-06-09] MEDS: DilTIAZem CD (24hr) 240 MG CAP.ER.24H PO SCH (17:08)
[2021-06-10] MEDS: Piperacillin/Tazobactam 3.375 GM in 0.9 % Sodium Chloride Mini Bag 100 ML IVPB SCH ×4 (00:14→23:06)
[2021-06-10] MEDS: Levalbuterol Neb 1.25 MG/3 ML IH SCH ×4 (04:16→20:16)
[2021-06-10 05:45] LABS: Basophils % 0.2 %
[2021-06-10 05:47] LABS: Basophils # 0.1 K/mcL (0.0-0.2); Hematocrit 33.2 % (35.3-44.9); Lymphocytes # 1.5 K/mcL (0.6-4.6); Lymphocytes % 5.7 %; Mean Corpuscular HGB Conc 33.1 g/dL (31.6-35.5); Mean Corpuscular Hemoglobin 28.2 pg (28.0-33.3); Mean Corpuscular Volume 85.1 fL (83.0-100.0); Mean Platelet Volume 8.9 fL (9.4-12.4); Monocytes # 0.8 K/mcL (0.0-1.3); Platelet Count 508 K/mcL (140-400); Segmented Neutrophils % 89.1 %; White Blood Count 26.1 K/mcL (4.3-11.1)
[2021-06-10 05:56] LABS: Neutrophils # 23.3 K/mcL (1.6-8.9)
[2021-06-10 06:08] LABS: % Iron Saturation 4 % (15-50); Iron 14 mcg/dL (50-170); Transferrin 248 mg/dL (203-362)
[2021-06-10 06:09] LABS: Alanine Aminotransferase 44 Units/L (7-52); Albumin 3.3 g/dL (3.5-5.7); Alkaline Phosphatase 144 Units/L (34-104); Aspartate Amino Transferase 48 Units/L (13-39); BUN/Creatinine Ratio 26 (6-26); Bilirubin,Total 0.6 mg/dL (0.3-1.0); Blood Urea Nitrogen 18 mg/dL (8-23); Calcium 8.7 mg/dL (8.6-10.3); Carbon Dioxide 26 mEq/L (23-29); Chloride 87 mEq/L (98-107); Globulin 3.2 g/dL (2.4-3.5); Glucose 132 mg/dL (70-105); Osmolality,Calculated 262 (280-300); Potassium 4.1 mEq/L (3.5-5.1); Sodium 124 mEq/L (136-145); Total Protein 6.5 g/dL (6.4-8.9); eGFR For African Americans > 60 (> 60); eGFR For Non-African Americans > 60 (> 60)
[2021-06-10 06:10] LABS: INR 1.7; Prothrombin Time 19.1 Seconds (9.4-12.1)
[2021-06-10 06:27] LABS: Folate 17.2 ng/mL (3.0-16.0)
[2021-06-10 06:29] LABS: Vitamin B12 > 1500 pg/mL (250-1100)
[2021-06-10] MEDS: Budesonide/Formoterol 160/4.5 1 PUFF INH IH SCH ×2 (07:37→20:16)
[2021-06-10] MEDS: Folic Acid 1 MG TABLET PO SCH (08:48)
[2021-06-10] MEDS: Furosemide 40 MG/4 ML VIAL IVP SCH ×2 (08:48→21:11)
[2021-06-10] MEDS: FLUoxetine 20 MG CAPSULE PO SCH (08:48)
[2021-06-10] MEDS: Metoprolol 100 MG TABLET PO SCH ×2 (08:48→21:10)
[2021-06-10] MEDS: Aspirin Enteric Coated 81 MG Tablet PO SCH (08:48)
[2021-06-10] MEDS: DilTIAZem CD (24hr) 240 MG CAP.ER.24H PO SCH (08:48)
[2021-06-10] MEDS: Thiamine (B-1) 100 MG TABLET PO SCH (08:48)
[2021-06-10] MEDS: predniSONE 20 MG TABLET PO SCH (08:49)
[2021-06-10] MEDS: Cholecalciferol (D-3) 1,000 UNIT (25MCG) TABLET PO SCH (08:49)
[2021-06-10] MEDS: *HR* Enoxaparin 120 MG/0.8 ML SYRINGE SQ SCH ×2 (08:55→16:39)
[2021-06-10] MEDS: Vancomycin 1,500 MG/265 ML IV.SOLN IVPB SCH (08:56)
[2021-06-10] MEDS ORDERED: *HR* Warfarin 5 MG TABLET PO ONE (18:00)
[2021-06-11 03:02] LABS: Basophils # 0.1 K/mcL (0.0-0.2); Basophils % 0.3 %; Hematocrit 30.8 % (35.3-44.9); Hemoglobin 10.1 g/dL (11.5-15.4); Immature Granulocytes % 4.3 % (0-4); Lymphocytes # 1.5 K/mcL (0.6-4.6); Mean Corpuscular HGB Conc 32.8 g/dL (31.6-35.5); Mean Corpuscular Hemoglobin 28.5 pg (28.0-33.3); Mean Corpuscular Volume 86.8 fL (83.0-100.0); Mean Platelet Volume 8.6 fL (9.4-12.4); Monocytes # 1.2 K/mcL (0.0-1.3); Monocytes % 5.5 %; Neutrophils # 17.6 K/mcL (1.6-8.9); Platelet Count 505 K/mcL (140-400); Red Blood Count 3.55 M/mcL (3.82-4.97); Red Cell Distribution Width 15.9 % (11.5-14.5); Segmented Neutrophils % 82.9 %; White Blood Count 21.3 K/mcL (4.3-11.1)
[2021-06-11 03:11] LABS: INR 1.6; Prothrombin Time 17.9 Seconds (9.4-12.1)
[2021-06-11 03:18] LABS: Alanine Aminotransferase 100 Units/L (7-52); Alkaline Phosphatase 133 Units/L (34-104); Aspartate Amino Transferase 116 Units/L (13-39); BUN/Creatinine Ratio 30 (6-26); Bilirubin,Total 0.5 mg/dL (0.3-1.0); Blood Urea Nitrogen 18 mg/dL (8-23); Calcium 8.1 mg/dL (8.6-10.3); Carbon Dioxide 30 mEq/L (23-29); Chloride 89 mEq/L (98-107); Glucose 113 mg/dL (70-105); Osmolality,Calculated 271 (280-300); Potassium 3.7 mEq/L (3.5-5.1); Sodium 129 mEq/L (136-145); eGFR For African Americans > 60 (> 60); eGFR For Non-African Americans > 60 (> 60)
[2021-06-11] MEDS: Levalbuterol Neb 1.25 MG/3 ML IH SCH ×4 (03:23→19:19)
[2021-06-11] MEDS: *HR* Enoxaparin 120 MG/0.8 ML SYRINGE SQ SCH ×2 (06:34→17:59)
[2021-06-11] MEDS: Piperacillin/Tazobactam 3.375 GM in 0.9 % Sodium Chloride Mini Bag 100 ML IVPB SCH ×2 (08:08→15:55)
[2021-06-11] MEDS: FLUoxetine 20 MG CAPSULE PO SCH (08:09)
[2021-06-11] MEDS: Thiamine (B-1) 100 MG TABLET PO SCH (08:09)
[2021-06-11] MEDS: Furosemide 40 MG/4 ML VIAL IVP SCH ×2 (08:09→20:10)
[2021-06-11] MEDS: predniSONE 20 MG TABLET PO SCH (08:09)
[2021-06-11] MEDS: Cholecalciferol (D-3) 1,000 UNIT (25MCG) TABLET PO SCH (08:10)
[2021-06-11] MEDS: Metoprolol 100 MG TABLET PO SCH ×2 (08:10→20:10)
[2021-06-11] MEDS: Aspirin Enteric Coated 81 MG Tablet PO SCH (08:10)
[2021-06-11] MEDS: Folic Acid 1 MG TABLET PO SCH (08:10)
[2021-06-11] MEDS: DilTIAZem CD (24hr) 240 MG CAP.ER.24H PO SCH (08:10)
[2021-06-11] MEDS: Budesonide/Formoterol 160/4.5 1 PUFF INH IH SCH ×2 (10:50→19:19)
[2021-06-11] MEDS ORDERED: *HR* Warfarin 2.5 MG TABLET PO ONE (18:00)
[2021-06-12] MEDS: Piperacillin/Tazobactam 3.375 GM in 0.9 % Sodium Chloride Mini Bag 100 ML IVPB SCH ×3 (00:23→16:12)
[2021-06-12] MEDS: Levalbuterol Neb 1.25 MG/3 ML IH SCH ×2 (03:35→09:05)
[2021-06-12 05:05] LABS: Hematocrit 32.8 % (35.3-44.9); Hemoglobin 10.7 g/dL (11.5-15.4); Mean Corpuscular HGB Conc 32.6 g/dL (31.6-35.5); Mean Corpuscular Hemoglobin 28.4 pg (28.0-33.3); Mean Platelet Volume 8.7 fL (9.4-12.4); Platelet Count 499 K/mcL (140-400); Red Blood Count 3.77 M/mcL (3.82-4.97)
[2021-06-12 05:16] LABS: INR 1.9; Prothrombin Time 21.3 Seconds (9.4-12.1)
[2021-06-12 05:25] LABS: Alanine Aminotransferase 135 Units/L (7-52); Albumin 3.2 g/dL (3.5-5.7); Albumin/Globulin Ratio 1.2 (1.1-2.2); Alkaline Phosphatase 129 Units/L (34-104); Aspartate Amino Transferase 122 Units/L (13-39); BUN/Creatinine Ratio 25 (6-26); Bilirubin,Direct 0.1 mg/dL (0.0-0.2); Bilirubin,Indirect 0.3 mg/dL (0.0-1.0); Bilirubin,Total 0.4 mg/dL (0.3-1.0); Blood Urea Nitrogen 17 mg/dL (8-23); Calcium 8.2 mg/dL (8.6-10.3); Carbon Dioxide 32 mEq/L (23-29); Chloride 88 mEq/L (98-107); Globulin 2.7 g/dL (2.4-3.5); Glucose 102 mg/dL (70-105); Magnesium 1.7 mg/dL (1.6-2.6); Osmolality,Calculated 274 (280-300); Potassium 3.3 mEq/L (3.5-5.1); Sodium 131 mEq/L (136-145); Total Protein 5.9 g/dL (6.4-8.9); eGFR For African Americans > 60 (> 60); eGFR For Non-African Americans > 60 (> 60)
[2021-06-12] MEDS: *HR* Enoxaparin 120 MG/0.8 ML SYRINGE SQ SCH ×2 (05:55→16:11)
[2021-06-12 06:09] LABS: Lymphocytes # 2.2 K/mcL (0.6-4.6); Monocytes # 1.6 K/mcL (0.0-1.3); Neutrophils # 12.2 K/mcL (1.6-8.9); Platelet Estimate Normal (Normal)
[2021-06-12] MEDS ORDERED: Furosemide 40 MG/4 ML VIAL IVP SCH (08:00)
[2021-06-12] MEDS: predniSONE 20 MG TABLET PO SCH (08:27)
[2021-06-12] MEDS: DilTIAZem CD (24hr) 240 MG CAP.ER.24H PO SCH (08:27)
[2021-06-12] MEDS: Metoprolol 100 MG TABLET PO SCH ×2 (08:27→20:48)
[2021-06-12] MEDS: Cholecalciferol (D-3) 1,000 UNIT (25MCG) TABLET PO SCH (08:27)
[2021-06-12] MEDS: Aspirin Enteric Coated 81 MG Tablet PO SCH (08:28)
[2021-06-12] MEDS: Thiamine (B-1) 100 MG TABLET PO SCH (08:28)
[2021-06-12] MEDS: FLUoxetine 20 MG CAPSULE PO SCH (08:28)
[2021-06-12] MEDS: Folic Acid 1 MG TABLET PO SCH (08:28)
[2021-06-12] MEDS: Budesonide/Formoterol 160/4.5 1 PUFF INH IH SCH ×2 (09:05→20:02)
[2021-06-12] MEDS ORDERED: Levalbuterol Neb 1.25 MG/3 ML IH PRN (12:28)
[2021-06-12] MEDS: Magnesium Oxide 400 MG TABLET PO SCH (13:06)
[2021-06-12] MEDS ORDERED: *HR* Warfarin 2.5 MG TABLET PO ONE (18:00)
[2021-06-13] MEDS: Piperacillin/Tazobactam 3.375 GM in 0.9 % Sodium Chloride Mini Bag 100 ML IVPB SCH ×4 (01:35→23:34)
[2021-06-13] MEDS: *HR* Enoxaparin 120 MG/0.8 ML SYRINGE SQ SCH (03:23)
[2021-06-13 03:34] LABS: Basophils # 0.1 K/mcL (0.0-0.2); Basophils % 0.4 %; Eosinophils % 0.3 %; Hemoglobin 10.3 g/dL (11.5-15.4); Immature Granulocytes % 6.1 % (0-4); Lymphocytes # 2.2 K/mcL (0.6-4.6); Lymphocytes % 14.7 %; Mean Corpuscular HGB Conc 32.2 g/dL (31.6-35.5); Mean Corpuscular Hemoglobin 27.9 pg (28.0-33.3); Mean Corpuscular Volume 86.7 fL (83.0-100.0); Mean Platelet Volume 8.7 fL (9.4-12.4); Monocytes % 6.8 %; Platelet Count 476 K/mcL (140-400); Red Blood Count 3.69 M/mcL (3.82-4.97); Red Cell Distribution Width 16.3 % (11.5-14.5); Segmented Neutrophils % 71.7 %; White Blood Count 15.1 K/mcL (4.3-11.1)
[2021-06-13 03:42] LABS: Eosinophils # 0.1 K/mcL (0.0-0.6); Neutrophils # 10.8 K/mcL (1.6-8.9)
[2021-06-13 03:45] LABS: Alanine Aminotransferase 116 Units/L (7-52); Albumin 2.9 g/dL (3.5-5.7); Albumin/Globulin Ratio 1.1 (1.1-2.2); Alkaline Phosphatase 107 Units/L (34-104); Aspartate Amino Transferase 79 Units/L (13-39); BUN/Creatinine Ratio 29 (6-26); Bilirubin,Direct 0.1 mg/dL (0.0-0.2); Bilirubin,Indirect 0.4 mg/dL (0.0-1.0); Bilirubin,Total 0.5 mg/dL (0.3-1.0); Blood Urea Nitrogen 20 mg/dL (8-23); Calcium 8.3 mg/dL (8.6-10.3); Carbon Dioxide 33 mEq/L (23-29); Chloride 91 mEq/L (98-107); Globulin 2.6 g/dL (2.4-3.5); Glucose 98 mg/dL (70-105); Magnesium 1.8 mg/dL (1.6-2.6); Osmolality,Calculated 277 (280-300); Potassium 3.6 mEq/L (3.5-5.1); Sodium 132 mEq/L (136-145); Total Protein 5.5 g/dL (6.4-8.9); eGFR For African Americans > 60 (> 60); eGFR For Non-African Americans > 60 (> 60)
[2021-06-13 03:56] LABS: INR 2.1; Prothrombin Time 23.3 Seconds (9.4-12.1)
[2021-06-13 04:10] LABS: Hypochromasia Present (Not Present); Platelet Estimate Normal (Normal)
[2021-06-13 04:11] LABS: Reactive Lymphocytes Present (Not Present)
[2021-06-13] MEDS: Budesonide/Formoterol 160/4.5 1 PUFF INH IH SCH ×2 (07:35→19:42)
[2021-06-13] MEDS: Thiamine (B-1) 100 MG TABLET PO SCH (08:08)
[2021-06-13] MEDS: predniSONE 20 MG TABLET PO SCH (08:09)
[2021-06-13] MEDS: Cholecalciferol (D-3) 1,000 UNIT (25MCG) TABLET PO SCH (08:09)
[2021-06-13] MEDS: FLUoxetine 20 MG CAPSULE PO SCH (08:09)
[2021-06-13] MEDS: Aspirin Enteric Coated 81 MG Tablet PO SCH (08:09)
[2021-06-13] MEDS: Metoprolol 100 MG TABLET PO SCH ×2 (08:09→22:27)
[2021-06-13] MEDS: Magnesium Oxide 400 MG TABLET PO SCH (08:09)
[2021-06-13] MEDS: Folic Acid 1 MG TABLET PO SCH (08:09)
[2021-06-13] MEDS: Furosemide 40 MG TABLET PO SCH (08:09)
[2021-06-13] MEDS: DilTIAZem CD (24hr) 240 MG CAP.ER.24H PO SCH (08:09)
[2021-06-13] MEDS ORDERED: polyethylene glycoL 3350 17 GM POWD.PACK PO ONE (08:33)
[2021-06-13] MEDS ORDERED: Isovue-370 500 ML BOTTLE IVP ONE (11:18)
[2021-06-13 11:43] LABS: Bilirubin,Urine Negative (Negative); Blood,Urine Moderate (Negative); Clarity,Urine Turbid (Clear); Color,Urine Dark-Orange (Yellow); Glucose,Urine (UA) Normal (Normal); Ketones,Urine Negative (Negative); Leukocyte Esterase,Urine Moderate (Negative); Nitrite,Urine Negative (Negative); PH,Urine 7.5 pH Units (5.0-8.0); Protein,Urine 50 mg/dL (Neg-Trace)
[2021-06-13] MEDS ORDERED: *HR* Warfarin 2.5 MG TABLET PO ONE (18:00)
[2021-06-13] MEDS ORDERED: Bisacodyl 10 MG RECTAL SUPPOSITORY RC PRN (22:08)
[2021-06-14 03:10] LABS: Basophils # 0.1 K/mcL (0.0-0.2); Basophils % 0.3 %; Eosinophils % 0.2 %; Hematocrit 31.1 % (35.3-44.9); Hemoglobin 9.9 g/dL (11.5-15.4); Lymphocytes % 11.5 %; Mean Corpuscular HGB Conc 31.8 g/dL (31.6-35.5); Mean Corpuscular Hemoglobin 27.8 pg (28.0-33.3); Mean Corpuscular Volume 87.4 fL (83.0-100.0); Mean Platelet Volume 8.6 fL (9.4-12.4); Monocytes # 1.2 K/mcL (0.0-1.3); Monocytes % 6.8 %; Neutrophils # 13.5 K/mcL (1.6-8.9); Platelet Count 459 K/mcL (140-400); Red Blood Count 3.56 M/mcL (3.82-4.97); Red Cell Distribution Width 16.1 % (11.5-14.5); Segmented Neutrophils % 76.2 %; White Blood Count 17.7 K/mcL (4.3-11.1)
[2021-06-14 03:22] LABS: Alanine Aminotransferase 107 Units/L (7-52); Albumin/Globulin Ratio 1.2 (1.1-2.2); Alkaline Phosphatase 96 Units/L (34-104); Aspartate Amino Transferase 56 Units/L (13-39); BUN/Creatinine Ratio 25 (6-26); Bilirubin,Direct 0.1 mg/dL (0.0-0.2); Bilirubin,Indirect 0.3 mg/dL (0.0-1.0); Bilirubin,Total 0.4 mg/dL (0.3-1.0); Blood Urea Nitrogen 16 mg/dL (8-23); Calcium 8.4 mg/dL (8.6-10.3); Carbon Dioxide 31 mEq/L (23-29); Chloride 92 mEq/L (98-107); Globulin 2.5 g/dL (2.4-3.5); Glucose 110 mg/dL (70-105); Osmolality,Calculated 272 (280-300); Potassium 3.9 mEq/L (3.5-5.1); Sodium 130 mEq/L (136-145); Total Protein 5.5 g/dL (6.4-8.9); eGFR For African Americans > 60 (> 60); eGFR For Non-African Americans > 60 (> 60)
[2021-06-14 03:34] LABS: INR 2.3; Prothrombin Time 25.7 Seconds (9.4-12.1)
[2021-06-14] MEDS: Budesonide/Formoterol 160/4.5 1 PUFF INH IH SCH ×2 (07:44→19:48)
[2021-06-14] MEDS: DilTIAZem CD (24hr) 240 MG CAP.ER.24H PO SCH (08:36)
[2021-06-14] MEDS: Magnesium Oxide 400 MG TABLET PO SCH (08:36)
[2021-06-14] MEDS: Furosemide 40 MG TABLET PO SCH (08:37)
[2021-06-14] MEDS: Piperacillin/Tazobactam 3.375 GM in 0.9 % Sodium Chloride Mini Bag 100 ML IVPB SCH ×3 (08:37→23:23)
[2021-06-14] MEDS: Aspirin Enteric Coated 81 MG Tablet PO SCH (08:37)
[2021-06-14] MEDS: Metoprolol 100 MG TABLET PO SCH ×2 (08:37→20:38)
[2021-06-14] MEDS: FLUoxetine 20 MG CAPSULE PO SCH (08:37)
[2021-06-14] MEDS: Cholecalciferol (D-3) 1,000 UNIT (25MCG) TABLET PO SCH (08:37)
[2021-06-14] MEDS: Folic Acid 1 MG TABLET PO SCH (08:37)
[2021-06-14] MEDS: Thiamine (B-1) 100 MG TABLET PO SCH (08:37)
[2021-06-15 06:24] LABS: Hematocrit 32.2 % (35.3-44.9); Hemoglobin 10.2 g/dL (11.5-15.4); Mean Corpuscular HGB Conc 31.7 g/dL (31.6-35.5); Mean Corpuscular Hemoglobin 27.3 pg (28.0-33.3); Mean Corpuscular Volume 86.3 fL (83.0-100.0); Mean Platelet Volume 8.4 fL (9.4-12.4); Platelet Count 408 K/mcL (140-400); Red Blood Count 3.73 M/mcL (3.82-4.97); Red Cell Distribution Width 16.8 % (11.5-14.5); White Blood Count 13.8 K/mcL (4.3-11.1)
[2021-06-15 06:40] LABS: INR 2.3; Prothrombin Time 25.9 Seconds (9.4-12.1)
[2021-06-15 06:46] LABS: Alanine Aminotransferase 99 Units/L (7-52); Albumin 2.9 g/dL (3.5-5.7); Albumin/Globulin Ratio 1.3 (1.1-2.2); Alkaline Phosphatase 88 Units/L (34-104); Aspartate Amino Transferase 55 Units/L (13-39); BUN/Creatinine Ratio 22 (6-26); Bilirubin,Direct 0.1 mg/dL (0.0-0.2); Bilirubin,Indirect 0.3 mg/dL (0.0-1.0); Bilirubin,Total 0.4 mg/dL (0.3-1.0); Blood Urea Nitrogen 16 mg/dL (8-23); Calcium 8.3 mg/dL (8.6-10.3); Carbon Dioxide 33 mEq/L (23-29); Chloride 92 mEq/L (98-107); Globulin 2.2 g/dL (2.4-3.5); Glucose 70 mg/dL (70-105); Osmolality,Calculated 270 (280-300); Potassium 3.9 mEq/L (3.5-5.1); Sodium 130 mEq/L (136-145); Total Protein 5.1 g/dL (6.4-8.9); eGFR For African Americans > 60 (> 60); eGFR For Non-African Americans > 60 (> 60)
[2021-06-15 07:35] LABS: Monocytes # 0.3 K/mcL (0.0-1.3); Neutrophils # 10.2 K/mcL (1.6-8.9); Platelet Estimate Normal (Normal)
[2021-06-15] MEDS: Budesonide/Formoterol 160/4.5 1 PUFF INH IH SCH ×2 (07:40→19:49)
[2021-06-15] MEDS: Piperacillin/Tazobactam 3.375 GM in 0.9 % Sodium Chloride Mini Bag 100 ML IVPB SCH ×2 (09:08→15:52)
[2021-06-15] MEDS: FLUoxetine 20 MG CAPSULE PO SCH (09:08)
[2021-06-15] MEDS: Thiamine (B-1) 100 MG TABLET PO SCH (09:09)
[2021-06-15] MEDS: Folic Acid 1 MG TABLET PO SCH (09:09)
[2021-06-15] MEDS: Metoprolol 100 MG TABLET PO SCH (09:09)
[2021-06-15] MEDS: Cholecalciferol (D-3) 1,000 UNIT (25MCG) TABLET PO SCH (09:09)
[2021-06-15] MEDS: Aspirin Enteric Coated 81 MG Tablet PO SCH (09:09)
[2021-06-15] MEDS: Magnesium Oxide 400 MG TABLET PO SCH (09:09)
[2021-06-15] MEDS: Furosemide 40 MG TABLET PO SCH (09:09)
[2021-06-15] MEDS: DilTIAZem CD (24hr) 240 MG CAP.ER.24H PO SCH (09:09)
[2021-06-15] MEDS ORDERED: 0.9 % Sodium Chloride 500 ML IVC ONE (12:06)
[2021-06-15] MEDS ORDERED: 0.9 % Sodium Chloride 250 ML IVC ONE (14:41)
[2021-06-16] MEDS: Piperacillin/Tazobactam 3.375 GM in 0.9 % Sodium Chloride Mini Bag 100 ML IVPB SCH ×4 (00:04→23:19)
[2021-06-16 01:33] LABS: Hematocrit 29.8 % (35.3-44.9); Hemoglobin 9.5 g/dL (11.5-15.4); Mean Corpuscular HGB Conc 31.9 g/dL (31.6-35.5); Mean Corpuscular Hemoglobin 27.6 pg (28.0-33.3); Mean Corpuscular Volume 86.6 fL (83.0-100.0); Mean Platelet Volume 8.6 fL (9.4-12.4); Platelet Count 387 K/mcL (140-400); Red Blood Count 3.44 M/mcL (3.82-4.97); Red Cell Distribution Width 16.7 % (11.5-14.5); White Blood Count 13.2 K/mcL (4.3-11.1)
[2021-06-16 01:44] LABS: INR 2.1; Prothrombin Time 23.4 Seconds (9.4-12.1)
[2021-06-16 02:05] LABS: Lymphocytes # 1.6 K/mcL (0.6-4.6); Monocytes # 1.1 K/mcL (0.0-1.3); Neutrophils # 10.6 K/mcL (1.6-8.9); Platelet Estimate Normal (Normal)
[2021-06-16 02:49] LABS: Alanine Aminotransferase 76 Units/L (7-52); Albumin 2.7 g/dL (3.5-5.7); Albumin/Globulin Ratio 1.3 (1.1-2.2); Alkaline Phosphatase 80 Units/L (34-104); Aspartate Amino Transferase 36 Units/L (13-39); BUN/Creatinine Ratio 22 (6-26); Bilirubin,Direct 0.1 mg/dL (0.0-0.2); Bilirubin,Indirect 0.2 mg/dL (0.0-1.0); Bilirubin,Total 0.3 mg/dL (0.3-1.0); Blood Urea Nitrogen 19 mg/dL (8-23); Carbon Dioxide 29 mEq/L (23-29); Chloride 95 mEq/L (98-107); Globulin 2.1 g/dL (2.4-3.5); Glucose 115 mg/dL (70-105); Osmolality,Calculated 275 (280-300); Potassium 3.7 mEq/L (3.5-5.1); Sodium 131 mEq/L (136-145); Total Protein 4.8 g/dL (6.4-8.9); eGFR For African Americans > 60 (> 60); eGFR For Non-African Americans > 60 (> 60)
[2021-06-16] MEDS: Budesonide/Formoterol 160/4.5 1 PUFF INH IH SCH ×2 (07:33→20:03)
[2021-06-16] MEDS: Aspirin Enteric Coated 81 MG Tablet PO SCH (09:31)
[2021-06-16] MEDS: FLUoxetine 20 MG CAPSULE PO SCH (09:31)
[2021-06-16] MEDS: Magnesium Oxide 400 MG TABLET PO SCH (09:31)
[2021-06-16] MEDS: DilTIAZem CD (24hr) 120 MG CAP.ER.24H PO SCH (09:31)
[2021-06-16] MEDS: Thiamine (B-1) 100 MG TABLET PO SCH (09:31)
[2021-06-16] MEDS: Cholecalciferol (D-3) 1,000 UNIT (25MCG) TABLET PO SCH (09:31)
[2021-06-16] MEDS: Folic Acid 1 MG TABLET PO SCH (09:31)
[2021-06-16 10:38] LABS: Hematocrit 33.7 % (35.3-44.9); Hemoglobin 10.4 g/dL (11.5-15.4)
[2021-06-16] MEDS ORDERED: *HR* Warfarin 2.5 MG TABLET PO ONE (18:00)
[2021-06-17 02:47] LABS: Basophils % 0.2 %; Eosinophils # 0.1 K/mcL (0.0-0.6); Eosinophils % 0.9 %; Hematocrit 30.2 % (35.3-44.9); Hemoglobin 9.5 g/dL (11.5-15.4); Immature Granulocytes % 2.3 % (0-4); Lymphocytes # 1.8 K/mcL (0.6-4.6); Lymphocytes % 16.7 %; Mean Corpuscular HGB Conc 31.5 g/dL (31.6-35.5); Mean Corpuscular Hemoglobin 27.3 pg (28.0-33.3); Mean Corpuscular Volume 86.8 fL (83.0-100.0); Mean Platelet Volume 8.5 fL (9.4-12.4); Monocytes # 0.7 K/mcL (0.0-1.3); Monocytes % 6.6 %; Neutrophils # 7.8 K/mcL (1.6-8.9); Platelet Count 369 K/mcL (140-400); Red Blood Count 3.48 M/mcL (3.82-4.97); Red Cell Distribution Width 16.9 % (11.5-14.5); Segmented Neutrophils % 73.3 %; White Blood Count 10.6 K/mcL (4.3-11.1)
[2021-06-17 02:56] LABS: INR 1.8; Prothrombin Time 19.8 Seconds (9.4-12.1)
[2021-06-17 03:00] LABS: Alanine Aminotransferase 62 Units/L (7-52); Albumin 2.9 g/dL (3.5-5.7); Albumin/Globulin Ratio 1.3 (1.1-2.2); Alkaline Phosphatase 78 Units/L (34-104); Aspartate Amino Transferase 26 Units/L (13-39); BUN/Creatinine Ratio 17 (6-26); Bilirubin,Direct 0.1 mg/dL (0.0-0.2); Bilirubin,Indirect 0.5 mg/dL (0.0-1.0); Bilirubin,Total 0.6 mg/dL (0.3-1.0); Blood Urea Nitrogen 14 mg/dL (8-23); Calcium 8.3 mg/dL (8.6-10.3); Carbon Dioxide 27 mEq/L (23-29); Chloride 99 mEq/L (98-107); Globulin 2.3 g/dL (2.4-3.5); Glucose 98 mg/dL (70-105); Osmolality,Calculated 278 (280-300); Potassium 3.9 mEq/L (3.5-5.1); Sodium 134 mEq/L (136-145); Total Protein 5.2 g/dL (6.4-8.9); eGFR For African Americans > 60 (> 60); eGFR For Non-African Americans > 60 (> 60)
[2021-06-17 07:57] VITALS: BP 126/74; PULSE 87; TEMP 97.5
[2021-06-17] MEDS: Budesonide/Formoterol 160/4.5 1 PUFF INH IH SCH (08:03)
[2021-06-17] MEDS: Furosemide 40 MG TABLET PO SCH (08:25)
[2021-06-17] MEDS: Magnesium Oxide 400 MG TABLET PO SCH (08:25)
[2021-06-17] MEDS: Thiamine (B-1) 100 MG TABLET PO SCH (08:25)
[2021-06-17] MEDS: FLUoxetine 20 MG CAPSULE PO SCH (08:25)
[2021-06-17] MEDS: Aspirin Enteric Coated 81 MG Tablet PO SCH (08:25)
[2021-06-17] MEDS: Cholecalciferol (D-3) 1,000 UNIT (25MCG) TABLET PO SCH (08:25)
[2021-06-17] MEDS: DilTIAZem CD (24hr) 120 MG CAP.ER.24H PO SCH (08:25)
[2021-06-17] MEDS: Folic Acid 1 MG TABLET PO SCH (08:25)
[2021-06-17] MEDS: Piperacillin/Tazobactam 3.375 GM in 0.9 % Sodium Chloride Mini Bag 100 ML IVPB SCH (09:01)
[2021-06-17 11:30] VITALS: O2SAT 98
[2021-06-17] MEDS ORDERED: *HR* Warfarin 2.5 MG TABLET PO ONE (18:00)
== END 2021-06-17 11:39 | disposition home or self-care (01) | DRG 871 ==
LOC: 2NNU 10:53 → EMEROOARM 10:53 → 2NNU 20:03 → SUATTDRO 06-09 18:07 → 2ANU 06-10 20:36
PROVIDERS: ADMIT Internal Medicine; ATTEND Internal Medicine